=== PATIENT | male | born 1980 | race Caucasian/White ===

== ENCOUNTER 2017-03-10 08:39 | Emergency (ER) | payer BC, MEDICAID ==
[~2017-03-10] VITALS: Ht 182.9 cm; Wt 100.0 kg
[2017-03-10] MEDS ORDERED: KETOROLAC 60MG/2ML VIAL IM ONE (09:30)
[2017-03-10] MEDS ORDERED: HYDROCODONE/ACETAMINOPHEN 5/325MG TABLET PO ONE (11:15)
[2017-03-10 12:08] VITALS: BP 122/72
== END 2017-03-10 12:26 | disposition home or self-care (01) ==
LOC: ER 08:50
DX: S62.393A Other fracture of third metacarpal bone, left hand, initial encounter for closed fracture (principal); Y00.XXXA Assault by blunt object, initial encounter; Y93.89 Activity, other specified; Y92.018 Other place in single-family (private) house as the place of occurrence of the external cause
CPT/HCPCS: 29125; 73130; 96372; 99284; J1885

== ENCOUNTER 2018-01-06 18:48 | Emergency (ER) | payer MEDICAID ==
[~2018-01-06] VITALS: Ht 182.9 cm; Wt 96.0 kg
[2018-01-06] MEDS ORDERED: IBUPROFEN 800MG TABLET PO ONE (23:00)
[2018-01-06 23:10] VITALS: BP 121/77
== END 2018-01-06 23:45 | disposition home or self-care (01) ==
LOC: ER 18:48
DX: M77.9 Enthesopathy, unspecified (principal); F17.200 Nicotine dependence, unspecified, uncomplicated
CPT/HCPCS: 99283; Z7610